=== PATIENT | male | born 1935 | race Caucasian/White ===

== ENCOUNTER 2023-11-03 10:00 | Emergency (ER) | payer OTHER ==
[~2023-11-03] VITALS: Ht 180.3 cm; Wt 73.0 kg
[~2023-11-03 10:00] MED LIST: CIPRO500 MG PO
[2023-11-03] MEDS ORDERED: ENSURE CLEAR PO (10:17)
[2023-11-03] MEDS ORDERED: BRIMONIDINE TART5 ML OPTH (10:18)
[2023-11-03] MEDS ORDERED: B12 ACTIVE1000 MCG PO (10:19)
[2023-11-03] MEDS ORDERED: DORZOLAMIDE 2%10 ML OP (10:20)
[2023-11-03] MEDS ORDERED: FERROUS SULFAT324 MG PO (10:21)
[2023-11-03] MEDS ORDERED: LEVOTHYROXINE500 MCG IV (10:21)
[2023-11-03] MEDS ORDERED: GAVILYTE-G SO4000 ML PO (10:23)
[2023-11-03] MEDS ORDERED: BETIMOL5 M2 OP (10:24)
[2023-11-03] MEDS ORDERED: TYLENOL325 M1 PO (10:26)
[2023-11-03] MEDS ORDERED: WHITE PETROLE16.8 GM TOP (10:26)
[2023-11-03] MEDS ORDERED: LIDOCAINE 2% VISCOUS 6 ML SYR TOP ONE ×2 (10:45→11:30)
[2023-11-03 12:05] VITALS: BP 128/77
== END 2023-11-03 11:57 | disposition home or self-care (01) ==
LOC: ED 10:00
DX: Z46.6 Encounter for fitting and adjustment of urinary device (principal); I11.0 Hypertensive heart disease with heart failure; I50.9 Heart failure, unspecified; E78.5 Hyperlipidemia, unspecified; E03.9 Hypothyroidism, unspecified; Z88.0 Allergy status to penicillin; Z88.2 Allergy status to sulfonamides; Z88.1 Allergy status to other antibiotic agents; Z91.040 Latex allergy status; Z79.899 Other long term (current) drug therapy
CPT/HCPCS: 51702; 99283

== ENCOUNTER 2024-04-02 08:34 | Inpatient (IN) | payer OTHER ==
[~2024-04-02] VITALS: Ht 180.3 cm; Wt 75.2 kg
[~2024-04-02 08:34] MED LIST changes: +B12 ACTIVE1000 MCG PO; +BETIMOL5 M2 OP; +BRIMONIDINE TART5 ML OPTH; +DORZOLAMIDE 2%10 ML OP; +ENSURE CLEAR PO; +FERROUS SULFAT324 MG PO; +GAVILYTE-G SO4000 ML PO; +LEVOTHYROXINE500 MCG IV; +TYLENOL325 M1 PO; +WHITE PETROLE16.8 GM TOP
[2024-04-02] MEDS ORDERED: LEVOTHYROXINE50 MC1 PO ×2 (08:52)
[2024-04-02] MEDS ORDERED: HYDROmorphone HCL 1 MG/ML SYR IV ONE (09:00)
[2024-04-02] MEDS ORDERED: ondansetron HCL 4 MG/2 ML VIAL IV ONE (09:00)
[2024-04-02] MEDS ORDERED: SODIUM CHLORIDE 0.9% 1,000 ML IV ONE (09:00)
[2024-04-02 09:10] LABS: BASOPHILS 0.2 % (0-2); EOSINOPHILS 0.5 % (0-6); HEMATOCRIT 41.7 % (35.0-50.0); HEMOGLOBIN 14.1 g/dL (12.0-18.0); LYMPHOCYTES 4.6 % (24-44); MCH 30.8 (27-36); MCHC 33.9 g/dl (30-36); MONOCYTES 4.6 % (0-12); NEUTROPHILS 90.1 % (39-80); PLATELET COUNT 417 K/uL (140-440); RBC 4.58 M/ul (4.3-5.7); RDW 14.7 (10.5-15.0)
[2024-04-02 09:25] LABS: ALBUMIN 3.4 g/dL (3.4-5.0); ALBUMIN/GLOBULIN RATIO 0.58 (1.1-2.4); ANION GAP 16.2 (7-21); BILIRUBIN, TOTAL 0.4 ng/dL (0.2-1.0); BUN/CREATININE RATIO 16.66 (6.0-28.6); CALCIUM 9.9 mg/dL (8.5-10.1); CREATININE, SERUM 1.38 mg/dL (0.70-1.30); MAGNESIUM 2.6 mg/dL (1.8-2.4); POTASSIUM 4.2 mmol/L (3.5-5.1); PROTEIN, TOTAL 9.3 g/dL (6.4-8.2)
[2024-04-02 11:01] LABS: BILIRUBIN, URINE NEGATIVE (negative); BLOOD/HGB, URINE TRACE-I (Negative); KETONE, URINE NEGATIVE (Negative); LEUK ESTERASE, URINE TRACE (negative); NITRITE, URINE POSITIVE (negative)
[2024-04-02 11:07] LABS: CRYSTALS, URINE AMORPHOUS PHOSPH 2+ (0-1+); WHITE BLOOD CELLS, URINE 21-40 /HPF (0-5)
[2024-04-02 11:08] LABS: BACTERIA, URINE 3+ /hpf (negative); CASTS, URINE NONE SEEN \\lpf; COLLECTION TYPE, URINE CLEAN CATCH; REFLEX CULTURE, URINE Yes (No)
[2024-04-02] MEDS ORDERED: HEParin SOD (PORCINE) 5,000 UNIT/ML SDV SUB-Q SCH (11:26)
[2024-04-02] MEDS ORDERED: ondansetron HCL 4 MG/2 ML VIAL IV PRN (11:30)
[2024-04-02] MEDS ORDERED: POLYETHYLENE GLYCOL 3350 1 PACKET PO PRN (11:30)
[2024-04-02] MEDS ORDERED: LACTATED RINGER'S 1,000 ML IV SCH (11:30)
[2024-04-02] MEDS ORDERED: PROCHLORPERAZINE EDISYLATE 10 MG/2 ML VIAL IV PRN (11:30)
[2024-04-02] MEDS ORDERED: PHARMACY RENAL DOSE ADJUSTMENT 1 DOSE MISC PO SCH (12:00)
[2024-04-02] MEDS ORDERED: LIDOCAINE 2% VISCOUS 6 ML SYR TOP ONE (12:30)
--- NOTE | 2024-04-02 13:15 | NUR ---
TO ED WITH COLLEEN ZUNIGA TO RECIEVE REPORT AND TRANSPORT PATIENT TO MEDICAL FLOOR. RECIEVED REPORT FROM COLLEEN COWART. PATIENT RECIVING NG TUBE PLACEMENT. XRAY IN ROOM TO CONFIRM PLACEMENT. TWO STAFF FROM [facility] PRESENT IN ROOM. TRANSPORTED PATIENT TO MEDICAL FLOOR. BEGAN ADMISSIONS ASSESSMENT PROCESS. PATIENT INITIALLY COMPLIANT WITH THE ADMISSION ASSESSMENT PROCESS AND WAS ANSWERING QUESTIONS APPROPRIATELY. DURING HX ASSESSMENT PATIENT BECAME AGITATED WITH THE QUESTIONING PROCESS, STATES "WHY ARE YOU ASKING ME THE SAME QUESTIONS OVER AND OVER AGAIN?" THIS RN PROVIDES EDUCATION ON THE IMPORTANCE AND PURPOSE OF ADMISSION QUESTIONS AND ASSESSMENT. PATIENT CONTINUES TO ANSWER QUESTIONS UNTIL PART WAY THROUGH THE HX ASSESSMENT WHEN PATIENT IS ASKED TO REPEAT AN ANSWER AND TELLS THIS RN TO "SPEAK LAO." AFTER STATING THAT THIS RN WAS INDEED SPEAKING LAO, THIS RN REPEATS QUESTION. AT THIS TIME THE PATIENT BEGINS ANSWERING QUESTIONS IN A NON-MEANINGFUL MANNER. WHEN ASKED TO CLARIFY HIS ANSWERS, PATIENT STOPS ANSWERING. UNABLE TO COMPLETE THE HX ASSESSMENT DUE TO PATIENT BEING NON-COMPLIANT. PATIENT REFUSED TO ANSWER ANY MORE ASSESSMENT QUESTIONS, THIS RN LEAVES ROOM TO ALLOW PATIENT LOWER STIMULUS. CALL LIGHT WITHIN REACH. UPDATED.
[2024-04-02 13:24] VITALS: BP 135/65
[2024-04-02 14:06] LABS: LACTIC ACID, BLOOD 2.2 mmol/L (0.4-2.0)
--- NOTE | 2024-04-02 14:37 | NUR ---
RN RESPONDING TO CALL LIGHT FROM GUARD. PT PULLED NG TUBE. PT VERBALY COMBATIVE UPON ENTERING THE ROOM AND INSPECTING NGTUBE SITE. UPDATED. NO NEW ORDERS AT THIS TIME.
--- NOTE | 2024-04-02 14:57 | NUR ---
VERBAL ORDER RECEIVED TO PLACE SURGEON CONUSLT FOR SBO - ENTERED. DR. ARCE NOTIFIED VIA PHONE CALL.
[2024-04-02] MEDS ORDERED: CEFEPIME HCL/D5W 1 GM/100 ML PIGGYBACK IV SCH (15:00)
[2024-04-02 17:08] VITALS: BP 166/80
[2024-04-02 17:25] VITALS: BP 109/64
[2024-04-02 17:42] VITALS: BP 109/64
[2024-04-02] MEDS ORDERED: MELATONIN 3 MG TAB PO PRN (21:00)
[2024-04-03] MEDS ORDERED: PRILOSEC OTC20 MG PO ×3 (01:47→02:48)
[2024-04-03] MEDS ORDERED: ONDANSETRON HCL8 MG PO ×2 (01:48)
[2024-04-03] MEDS ORDERED: OXYCODONE HCL5 MG PO ×2 (01:48)
[2024-04-03] MEDS ORDERED: DOCUSATE SODIU100 MG PO ×2 (01:50)
[2024-04-03] MEDS ORDERED: B-121000 MC2 PO ×2 (01:50)
[2024-04-03] MEDS ORDERED: FERROUS SULFAT324 MG PO ×2 (01:51)
[2024-04-03] MEDS ORDERED: LEVOTHYROXINE50 MC1 PO ×2 (01:51)
[2024-04-03] MEDS ORDERED: ALEVE ARTHRITI100 GM TOP ×2 (02:39)
[2024-04-03] MEDS ORDERED: MIRALAX119 GM PO ×2 (02:41)
[2024-04-03] MEDS ORDERED: ANTI-ITCH28 G2 TOP ×2 (02:46)
[2024-04-03] MEDS ORDERED: LATANOPROST2.5 ML OPTH ×2 (02:47)
[2024-04-03] MEDS ORDERED: VITAMIN D250 MCG PO ×2 (02:49)
[2024-04-03] MEDS ORDERED: LEVOTHYROXINE SODIUM 50 MCG TAB PO SCH (07:00)
[2024-04-03] MEDS ORDERED: FLU VACC TS2024(65UP)/MF59C/PF 1 EACH SYR IM SCH (09:00)
--- NOTE | 2024-04-04 07:44 | EKG ---
[facility] [address] [place] [address] Signed Normal sinus rhythm Left axis deviation Minimal voltage criteria for LVH, may be normal variant ( R in aVL ) Possible Lateral infarct , age undetermined Abnormal ECG When compared with ECG of 06-DEC-2023 19:43, Vent. rate has increased Confirmed by Emmanuel Lewis MD ([id number]) on 04/04/2024 7:44:50 AM Electronically Signed By: EMMANUEL LEWIS MD 04/04/24 0744 PATIENT NAME: MERCY JACKSON Electrocardiogram DATE OF : [birth year] PHYSICIAN: EMMANUEL LEWIS MD REPORT #: [id number] REPORT IS CONFIDENTIAL AND NOT TO BE RELEASED WITHOUT AUTHORIZATION
== END 2024-04-02 17:40 | disposition other institution, planned readmission (95) | DRG 389 ==
LOC: ED 08:34 → MS 11:33
PROVIDERS: Emergency Medicine; ADMIT Student in an Organized Health Care Education/Training Program; ATTEND Student in an Organized Health Care Education/Training Program
PROC: 0DH67UZ Insertion of Feeding Device into Stomach, Via Natural or Artificial Opening (ICD-10-PCS; principal; 2024-04-02)
DX: K56.609 Unspecified intestinal obstruction, unspecified as to partial versus complete obstruction (principal); N39.0 Urinary tract infection, site not specified; I25.10 Atherosclerotic heart disease of native coronary artery without angina pectoris; K21.9 Gastro-esophageal reflux disease without esophagitis; I11.0 Hypertensive heart disease with heart failure; I50.9 Heart failure, unspecified; E03.9 Hypothyroidism, unspecified; E78.5 Hyperlipidemia, unspecified; H54.62 Unqualified visual loss, left eye, normal vision right eye; K44.9 Diaphragmatic hernia without obstruction or gangrene; K80.20 Calculus of gallbladder without cholecystitis without obstruction; Z88.0 Allergy status to penicillin; Z88.2 Allergy status to sulfonamides; Z88.8 Allergy status to other drugs, medicaments and biological substances; Z91.040 Latex allergy status; Z79.891 Long term (current) use of opiate analgesic; Z79.890 Hormone replacement therapy; Z79.899 Other long term (current) drug therapy
CPT/HCPCS: 36415; 71045; 74176; 80053; 81001; 83605; 83690; 83735; 85025; 93005; 93010; 96361; 96374; 96375; 99285-25; J2405; J7030; J7121

== ENCOUNTER 2024-04-02 23:53 | Inpatient (IN) | payer OTHER ==
[~2024-04-02] VITALS: Ht 180.3 cm; Wt 74.0 kg
[~2024-04-02 23:53] MED LIST changes: +LEVOTHYROXINE50 MC1 PO
--- OUTSIDE RECORDS SUMMARY | 2024-04-03 00:01 | XMS ---
PreManage Notification: MER[facility] JACKSON Security Corporate Quality Assurance Manager Events No recent Security Events currently on file CRITERIA MET - [facility] - 2 Visits in 30 Days CARE PROVIDERS There are no care providers on record at this time. Link has no Care Guidelines for this patient. Jose Manuel [facility] MO[facility] NOTE: Visits indicate total known visits. ED/UCC VISIT TRACKING (12 MO.) [facility] 23[facility] [place] COMPLAINT: - BOWEL OBSTRUCTION UTI 04/02/2024 08:34 [facility] [place] TYPE: Emergency COMPLAINT: - VOMITING 01/16/2024 01:31 [facility] [place] TYPE: Emergency COMPLAINT: - CONSTIPATION DIAGNOSES: - Allergy status to other drugs, medicaments and biological substances - Allergy status to penicillin - Atherosclerotic heart disease of [place] coronary artery without angina pectoris - Constipation, unspecified - Heart failure, unspecified - Hormone replacement therapy - Hypertensive heart disease with heart failure - Latex allergy status - Other assisted (current) drug therapy 12/06/2023 18:50 [facility] [place] TYPE: Emergency COMPLAINT: - CHEST PAIN DIAGNOSES: - Allergy status to other antibiotic agents - Allergy status to penicillin - Allergy status to sulfonamides - Atherosclerotic heart disease of [place] coronary artery without angina pectoris - Chest pain, unspecified - Heart failure, unspecified - Hormone replacement therapy - Hypertensive heart disease with heart failure - Hypothyroidism, unspecified - Latex allergy status - Other chest pain - Other intermediate teacher (current) drug therapy - Pneumonia, unspecified organism 11/03/2023 10:00 [facility] [place] TYPE: Emergency COMPLAINT: - CATHETER ISSUE DIAGNOSES: - Allergy status to other antibiotic agents - Allergy status to penicillin - Allergy status to sulfonamides - Encounter for fitting and adjustment of urinary device - Heart failure, unspecified - Hyperlipidemia, unspecified - Hypertensive heart disease with heart failure - Hypothyroidism, unspecified - Latex allergy status - Other assisted (current) drug therapy 09/04/2023 09:54 [facility] [place] TYPE: Emergency COMPLAINT: - UNABLE TO URINATE DIAGNOSES: - Allergy status to other antibiotic agents - Allergy status to penicillin - Allergy status to sulfonamides - Atherosclerotic heart disease of [place] coronary artery without angina pectoris - Cystostomy malfunction - Heart failure, unspecified - Hyperlipidemia, unspecified - Hypertensive heart disease with heart failure - Hypothyroidism, unspecified - Imprisonment and other incarceration - Other difficulties with micturition 09/03/2023 09:01 [facility] [place] TYPE: Emergency COMPLAINT: - ABD PAIN, WEAKNESS, AMS DIAGNOSES: - Calculus of gallbladder without cholecystitis without obstruction - Constipation, unspecified - Generalized abdominal pain - Personal history of urinary (tract) infections - Presence of urogenital implants - Urinary tract infection, site not specified INPATIENT VISIT TRACKING (12 MO.) 04/02/2024 11:33 [facility] [place] TYPE: Medical Surgical COMPLAINT: - SMALL BOWEL OBSTRUCTION [email or web address]
[2024-04-03] MEDS ORDERED: ondansetron HCL 4 MG/2 ML VIAL IV PRN (00:15)
[2024-04-03] MEDS ORDERED: MORPHINE SULFATE 4 MG/ML VIAL IV PRN (00:15)
[2024-04-03] MEDS ORDERED: ACETAMINOPHEN 325 MG TAB PO PRN (00:15)
[2024-04-03] MEDS ORDERED: DEXTROSE 5% - LACTATED RINGERS 1,000 ML IV SCH (00:15)
[2024-04-03] MEDS ORDERED: LIDOCAINE 2% VISCOUS 6 ML SYR TOP ONE ×2 (00:30→00:45)
[2024-04-03] MEDS ORDERED: LORazepam 2 MG/ML VIAL IV ONE (01:00)
[2024-04-03] MEDS ORDERED: PRILOSEC OTC20 MG PO ×3 (01:47→02:48)
[2024-04-03] MEDS ORDERED: ONDANSETRON HCL8 MG PO ×2 (01:48)
[2024-04-03] MEDS ORDERED: OXYCODONE HCL5 MG PO ×2 (01:48)
[2024-04-03] MEDS ORDERED: B-121000 MC2 PO ×2 (01:50)
[2024-04-03] MEDS ORDERED: DOCUSATE SODIU100 MG PO ×2 (01:50)
[2024-04-03] MEDS ORDERED: LEVOTHYROXINE50 MC1 PO ×2 (01:51)
[2024-04-03] MEDS ORDERED: FERROUS SULFAT324 MG PO ×2 (01:51)
[2024-04-03 02:19] VITALS: BP 137/70
[2024-04-03] MEDS ORDERED: ALEVE ARTHRITI100 GM TOP ×2 (02:39)
[2024-04-03] MEDS ORDERED: MIRALAX119 GM PO ×2 (02:41)
[2024-04-03] MEDS ORDERED: ANTI-ITCH28 G2 TOP ×2 (02:46)
[2024-04-03] MEDS ORDERED: LATANOPROST2.5 ML OPTH ×2 (02:47)
[2024-04-03] MEDS ORDERED: VITAMIN D250 MCG PO ×2 (02:49)
--- NOTE | 2024-04-03 02:49 | NUR ---
PT TO FLOOR WITH ED RN VIA STRETCHER. 4PA SLIDE TRANSFER TO BED. REPORT RECEIVED. PT ALERT AND ORIENTED. NGT TO LIWS WITH SCANT AMOUNT BROWN DRAINAGE. BOWEL TONES ACTIVE. ABD SOFT. PT DENIES PAIN OR NAUSEA. HOB 30 DEGREES. BLOODY DRAINAGE FROM RIGHT NOSTRIL NOTED. FACE CLEANED. TELE PLACED. UROSTOMY PATENT WITH YELLOW URINE, PLACED TO DRAINAGE BAG. IVF INFUSING PER ORDER. PT IN WRIST AND ANKLE RESTRAINTS. GAURDS X 2 IN ROOM. NO FURTHER NEEDS. CALL LIGHT IN REACH.
[2024-04-03 05:07] VITALS: BP 125/73
[2024-04-03 05:18] LABS: BASOPHILS 0.2 % (0-2); EOSINOPHILS 0.3 % (0-6); HEMATOCRIT 35.6 % (35.0-50.0); LYMPHOCYTES 7.5 % (24-44); MCHC 33.6 g/dl (30-36); MCV 92.4 fl (81-99); MONOCYTES 7.2 % (0-12); NEUTROPHILS 84.8 % (39-80); PLATELET COUNT 339 K/uL (140-440); RBC 3.86 M/ul (4.3-5.7); RDW 14.8 (10.5-15.0)
--- NOTE | 2024-04-03 05:31 | NUR ---
PT RESTING WITH EYES CLOSED. AWAKENS BRIEFLY. VS AND I&O OBTAINED. PT NPO. IVF INFUSING PER ORDER. NGT TO LIWS WITH SCANT AMOUNT LIGHT BROWN DRAINAGE. BOWEL TONES ACTIVE. ABD SOFT. GUARDS IN ROOM. CALL LIGHT IN REACH.
[2024-04-03 05:33] VITALS: BP 125/73
[2024-04-03 05:37] LABS: ALBUMIN 2.6 g/dL (3.4-5.0); ALBUMIN/GLOBULIN RATIO 0.52 (1.1-2.4); ANION GAP 9.5 (7-21); BILIRUBIN, TOTAL 0.4 ng/dL (0.2-1.0); BUN/CREATININE RATIO 15.74 (6.0-28.6); CALCIUM 8.9 mg/dL (8.5-10.1); CREATININE, SERUM 1.27 mg/dL (0.70-1.30); MAGNESIUM 2.3 mg/dL (1.8-2.4); POTASSIUM 4.5 mmol/L (3.5-5.1); PROTEIN, TOTAL 7.6 g/dL (6.4-8.2)
--- NOTE | 2024-04-03 06:12 | NUR ---
GUARDS ALERTED STAFF PT CALLING OUT AND ATTEMPTING TO PULL AT NGT. PT STATES "MY NOSE, MY NOSE" BUT UNABLE TO GIVE PAIN RATING. PRN FOR PAIN ADMIN PER EMAR. HOB ELEVATED. SpO2 MID 90'S ON RA.
--- NOTE | 2024-04-03 06:24 | NUR ---
Patient was awake and restless. They complained of nasal pain. RN was notified.
--- NOTE | 2024-04-03 07:10 | NUR ---
REPORT RECEIVED FROM SURGICAL GARMENT ASSEMBLER COLLEEN PARADA. PATIENT IS LYING IN BED WITH EYES CLOSED AND RESPIRATIONS ARE EVEN AND UNLABORED. CALL LIGHT AND PERSONAL BELONGINGS ARE WITHIN REACH.
--- NOTE | 2024-04-03 07:38 | NUR ---
Board has been updated and call light has been placed within reach patient is sleeping at this momment. Two guards are in the room
[2024-04-03] MEDS ORDERED: AZITHROMYCIN 500 MG in DEXTROSE 5% 250 ML IV SCH (09:00)
[2024-04-03] MEDS ORDERED: CEFTRIAXONE/SODIUM CHLORIDE 2 GM/100 ML PIGGYBACK IV SCH (09:00)
--- NOTE | 2024-04-03 09:10 | NUR ---
RN AND SRT WALKED INTO THE ROOM. TWO EOCI GUARDS STOOD UP UPON ENTERING THE ROOM. PATIENT STATED "GET OUT" AND "I DON'T WANT YOU IN HERE". RN ASKED PATIENT IF RN CAN GIVE HIM HIS MEDICATIONS. PATIENT STATED "NO". RN ASKED PATIENT IF RN CAN TAKE HIS VITAL SIGNS, PATIENT STATED "NO". RN ASKED PATIENT IS RN CAN DO AN ASSESSMENT, PATIENT STATED "NO". TJ STATED "IT HAS TO BE HIS WAY". PATIENT STATED NO NEEDS AT THIS TIME. CALL LIGHT AND PERSONAL BELONGINGS ARE WITHIN REACH.
--- NOTE | 2024-04-03 09:15 | NUR ---
PATIENT REFUSED IMAGING AT THIS TIME.
--- NOTE | 2024-04-03 11:38 | NUR ---
PATIENT IS LYING IN BED WITH 2 GAURDS STANDING AT THE BEDSIDE. GAURDS GIVEN THE DISCHARGE PACKET AT THIS TIME. PATIENT EDUCATED ON THE NEED TO REMOVED THE IV. PATIENT STATED "DON'T TOUCH ME". PATIENT RE-EDUCATED ON THE NEED TO REMOVED THE IV PRIOR TO RETURNING TO [facility]. PATIENT STATED "I SWEAR IF YOU TOUCH ME ONE MORE TIME, I WILL PULL YOU IN THIS BED AND PULL YOUR PANTS DOWN AND BEAT YOUR ASS SO YOU CAN'T SIT THE NEXT DAY". THE GAURDS STATED "MANUEL YOU CANNOT TALK TO NURSES LIKE THAT WHEN THEY ARE TRYING TO HELP YOU GO HOME". PATIENT STATED "THIS IS MY TIME TO RELAX". PATIENT MADE AN ATTEMPT TO REACH FOR RN AT THE BEDSIDE. [facility] GAURD STATED "THE NURSE IS JUST TRYING TO HELP". PATIENT STATED "I WILL KILL YOU" TO THE GAURD. RN LEFT THE ROOM. PATIENT CARE ASSISTANT NOTIFIED. PATIENT CARE ASSISTANT TO BEDSIDE AT THIS TIME.
--- NOTE | 2024-04-04 08:35 | CONS ---
[facility] [address] [place], [place] [address] Signed DATE OF CONSULTATION: 04/03/2024 REQUESTING PHYSICIAN: Dr. Emmanuel Lewis. ISSUE: Small-bowel obstruction, ambivalence regarding desire for treatment. HISTORY OF PRESENT ILLNESS: This 88-year-old white man is a prisoner at [facility]. He was admitted to the hospital on April 02 with findings of nausea and vomiting and a CT scan which confirmed a small-bowel obstruction in the distal portion. A nasogastric tube had been placed and he was admitted by Dr. Hart. Surgical consultation was not undertaken at that time from what I gather. At presentation, he was noted to have comorbidities of coronary artery disease, congestive heart failure, reflux disease, hypertension, hypothyroidism, and noted to have a chronic suprapubic catheter in place. His presentation showed an elevated white count of 19.9 with a creatinine of 1.[address] scan showing numerous loops of fluid-filled dilated bowel and a small bowel obstruction with a transition point not far from the ileocecal valve. My review of his CT scan also showed a hiatal hernia and gallstones. The patient was briefly admitted, but then declined any further intervention or treatment and forcibly removed his own nasogastric tube. On that basis, he was returned to the [facility] under hospice care assessment. The patient had a change of heart regarding further treatment. Presented back to the emergency room at approximately midnight and was evaluated by Dr. Hardy. He had left AMA. No additional intervention was undertaken though he did have a chest x-ray which showed a left lower lobe infiltrate suggestive of pneumonia possibly. I was called by Dr. Lewis as surgeon superintendent distribution to make an assessment. REVIEW OF SYSTEMS: The patient refused to speak to me in any real way. He says he does not want any further intervention. Quite notably, his nurse advises me that he has refused the three antibiotics that have been prepared for him for treatment. PHYSICAL EXAMINATION: GENERAL: An elderly white man who is lying in bed. There were two guards in the room with him. A nasogastric tube was in place and draining some bilious fluid, not in Electronically Signed By: PHYLLIS ROGEL MD 04/04/24 0835 PATIENT NAME: MERCY JACKSON CONSULTATION DATE OF : [birth year] REPORT #: [id number] PHYSICIAN: PHYLLIS ROGEL MD PCP: ARVIN CASSIDY REPORT IS CONFIDENTIAL AND NOT TO BE RELEASED WITHOUT AUTHORIZATION [facility] [address] [place] [id number] Signed copious amounts. My approach to the patient was gentle but he adamantly refuses to speak anymore about any kind of intervention at this time. IMAGING DATA: My review of his imaging studies including a chest x-ray at approximately 1:30 a.m. today, which showed tip and side port of the enteric tube overlying the stomach and unchanged left basilar midlung opacity and air-filled dilated loops of bowel within the left upper quadrant up to 3.3 cm in diameter. My review of his CT scan confirms the findings as previously noted. ASSESSMENT: The patient refuses any further surgical assessment at this time. He is refusing medications that have been recommended as well. Were the patient amenable to further evaluation I would recommend that he consider laparotomy for remedy of the small bowel obstruction. A hiatal hernia that is present appears not to be symptomatic at this time and gallstones appear unlikely to be causing a problem now also. Full evaluation is not possible as the patient adamantly refuses examination or even further discussion on the matter. In the presence of his two guards I told him we respect his wishes to seek no further intervention at this time. I reviewed this with Dr. Lewis his admitting physician. It is my impression that he is competent for his own medical decision making and Dr Lewis affirms that as well. I confirmed with Dr Lewis that hospice / comfort care orders have been outlined for the care team at [facility]. MD VLADIMIR Holman/CARMITAL /[id number] cc: [facility] Medical Department EMMANUEL LEWIS MD Electronically Signed By: PHYLLIS ROGEL MD 04/04/24 0835 PATIENT NAME: MERCY JACKSON CONSULTATION DATE OF : [birth year] REPORT #: [id number] PHYSICIAN: PHYLLIS ROGEL MD PCP: ARVIN CASSIDY REPORT IS CONFIDENTIAL AND NOT TO BE RELEASED WITHOUT AUTHORIZATION [address] [address] Signed Copies: ~ Electronically Signed By: PHYLLIS ROGEL MD 04/04/24 0835 PATIENT NAME: MANUELMERCY CEE CONSULTATION DATE OF : [birth year] REPORT #: [id number] PHYSICIAN: PHYLLIS ROGEL MD PCP: ARVIN CASSIDY REPORT IS CONFIDENTIAL AND NOT TO BE RELEASED WITHOUT AUTHORIZATION
== END 2024-04-03 12:31 | disposition home or self-care (01) | DRG 389 ==
LOC: ED 23:53 → MS 04-03 00:10
PROVIDERS: Family Medicine; ADMIT Student in an Organized Health Care Education/Training Program; ATTEND Student in an Organized Health Care Education/Training Program
PROC: 0DH67UZ Insertion of Feeding Device into Stomach, Via Natural or Artificial Opening (ICD-10-PCS; principal; 2024-04-03)
DX: K56.609 Unspecified intestinal obstruction, unspecified as to partial versus complete obstruction (principal); N39.0 Urinary tract infection, site not specified; I25.10 Atherosclerotic heart disease of native coronary artery without angina pectoris; I50.9 Heart failure, unspecified; K21.9 Gastro-esophageal reflux disease without esophagitis; E78.5 Hyperlipidemia, unspecified; H54.62 Unqualified visual loss, left eye, normal vision right eye; K44.9 Diaphragmatic hernia without obstruction or gangrene; I11.0 Hypertensive heart disease with heart failure; E03.9 Hypothyroidism, unspecified; Z88.0 Allergy status to penicillin; Z88.2 Allergy status to sulfonamides; Z91.040 Latex allergy status; Z88.8 Allergy status to other drugs, medicaments and biological substances; Z98.890 Other specified postprocedural states; Z79.899 Other long term (current) drug therapy; Z79.891 Long term (current) use of opiate analgesic; Z79.890 Hormone replacement therapy
CPT/HCPCS: 36415; 71045; 80053; 83605; 83735; 85025; 96374; 99285-25; J0456; J0696; J2060; J2270; J7060; J7121